=== PATIENT | female | born 1945 | race Caucasian/White ===

== ENCOUNTER 2018-03-23 19:27 | Inpatient (IN) | payer OTHER ==
[2018-03-23] MEDS ORDERED: ALPRAZOLAM 0.25 MG TABLET PO PRN (20:36)
[2018-03-23] MEDS ORDERED: ACETAMINOPHEN 500 MG TAB PO PRN (20:36)
--- NOTE | 2018-03-23 20:45 | ER ---
Nurse's Notes [facility] Name: Rossi Murray Age: 72 yrs Sex: Female : 1945 Arrival Date: 03/23/2018 Time: 19:29 Bed 4 Private MD: Luisito Foster C Diagnosis: Atrial fibrillation and flutter Presentation: 03/23 19:42 Presenting complaint: Patient states: Sent by Dr Foster for admission for A-fib RVR. aj Transition of care: patient was not received from another setting of care. Onset of symptoms was March 23, 2018. Risk Assessment: Do you want to hurt yourself or someone else? Patient reports no desire to harm self or others. Initial Sepsis Screen: Does the patient meet any 2 criteria? No. Patient's initial sepsis screen is negative. Does the patient have a suspected source of infection? No. Patient's initial sepsis screen is negative. Care prior to arrival: None. 19:42 Method Of Arrival: Ambulatory aj 19:42 Acuity: PRISCILA 3 aj Triage Assessment: 19:43 General: Appears in no apparent distress. comfortable, Behavior is calm, cooperative, aj appropriate for age. Pain: Denies pain. Neuro: Level of Consciousness is awake, alert, obeys commands, Oriented to person, place, time, situation, Appropriate for age. Respiratory: Airway is patent Respiratory effort is even, unlabored, Respiratory pattern is regular, symmetrical. Derm: Skin is intact, is healthy with good turgor, Skin is pink, warm \T\ dry. normal. Historical: - Allergies: 19:43 PENICILLINS; aj - PMHx: 19:43 Hypothyroidism; Hypertension; aj - Immunization history:: Adult Immunizations up to date. - Social history:: Smoking status: Patient/guardian denies using tobacco. - Ebola Screening: : Patient negative for fever greater than or equal to 101.5 degrees Fahrenheit, and additional compatible Ebola Virus Disease symptoms Patient denies exposure to infectious person Patient denies travel to an Ebola-affected area in the 21 days before illness onset No symptoms or risks identified at this time. Vital Signs: 19:43 BP 148 / 77; Pulse 82; Resp 19; Temp 98.4; Pulse Ox 95% on R/A; Weight 106.14 kg; aj Height 5 ft. 2 in. (157.48 cm); 19:43 Body Mass Index 42.80 (106.14 kg, 157.48 cm) ED Course: 19:29 Patient arrived in ED. es 19:30 Luisito Foster MD is Private Physician. es 19:43 Triage completed. aj 19:43 Arm band placed on left wrist. Patient placed in an exam room. aj 19:53 Paul Hall MD is Attending Physician. pkl 20:44 Luisito Foster MD is Hospitalizing Provider. kl Administered Medications: No medications were administered Outcome: 20:45 Decision to Hospitalize by Provider. kl Signatures: Jannie Kearns, RN RN Wnedy Trejo RN RN Paul Nguyen MD MD pkl Debra Gonsales
--- NOTE | 2018-03-23 21:50 | RAD REPORT ---
EXAM DESCRIPTION: Oneida Tovar And Aron (2 Views)03/23/2018 9:34 pm CLINICAL HISTORY: Atrial fibrillation COMPARISON: May 2017 FINDINGS: The lungs appear clear of acute infiltrate. The heart is borderline enlarged IMPRESSION: No acute abnormalities displayed
[2018-03-23 22:08] LABS: Magnesium 2.3 mg/dL (1.8-2.4)
[2018-03-23 22:13] LABS: Absolute Lymphocytes (CBC) 2.1 K/uL (0.7-4.9); Absolute Monocytes 0.7 K/uL (0.1-1.3); Absolute Neutrophil 4.7 K/uL (1.8-8.0); Basophils % 0.7 % (0-1.3); Eosinophils % 3.5 % (0-4.4); Hematocrit 37.2 % (36.0-45.0); MCH 26.1 pg (27.0-35.0); MCV 79.9 fL (80-100); MPV 8.4 fL (7.6-11.3); Monocytes % 8.8 % (3.3-12.3); RBC Red Blood Cell Count 4.66 M/uL (3.86-4.86)
[2018-03-23] MEDS: RIVAROXABAN 10 MG TABLET PO SCH (22:34)
[2018-03-23] MEDS: SOTALOL HCL 80 MG TAB PO SCH (22:34)
[2018-03-24 04:13] LABS: Urine Appearance CLEAR; Urine Bilirubin NEGATIVE (NEG); Urine Blood NEGATIVE (NEG); Urine Color YELLOW; Urine Glucose NEGATIVE (NEG); Urine Protein NEGATIVE (NEG); Urine Urobilinogen 0.2 mg/dL (0.2-1.0)
[2018-03-24 04:14] LABS: Urine Microscopic Reflex NO UMIC
--- NOTE | 2018-03-24 05:40 | EKG ---
Test Date: 2018-03-23 Test Time: 23:33:47 Port Patrol Officer: RT Harvey MEASUREMENT RESULTS: Intervals: Rate: 119 CA: QRSD: 82 QT: 340 QTc: 478 [place]: P: CA: QRS: -5 T: 14 INTERPRETIVE STATEMENTS: Atrial fibrillation with rapid ventricular response with premature ventricular or aberrantly conducted complexes Abnormal ECG Compared to ECG 07/10/2013 11:53:34 Ventricular premature complex(es) now present Sinus bradycardia no longer present Sinus arrhythmia no longer present Electronically Signed On 03-24-18 05:40:03 CDT by Simón Baca
--- NOTE | 2018-03-24 06:42 | HP ---
Date of Admission: 03/23/2018 Chief Complaint: Atrial fibrillation. History Of Present Illness: A 72-year-old very pleasant female patient who came in to see me on 02/2018 for her routine followup visit and when she had her vital signs checked at the office, she was noted that her heart rate was very high. Her pulse rate was 150 per minute and it was irregular. S o as soon as I found out, I evaluated her and decided to do EKG as I was concerned about atrial fibri llation. Her heart rhythm was irregularly irregular when I examined her. By the time, we did EKG on her at the office, she had converted back to sinus rhythm on her own and her EKG had shown normal si nus rhythm with heart rate around 60 to 70 per minute. So, I was suspecting atrial fibrillation, but I was not able to prove it because she had converted on her own to sinus rhythm. Property Coordinator was Dr. Keven toure and the patient was sent over to his office for event monitor and routine blood work was done which came back unremarkable including normal TSH and normal potassium. Today, I was n otified from environmental test technician office that patient's monitor has picked up atrial fibrillation, so the pat sonali was contacted to come and see me at the office, and I did talk to environmental test technician to confirm this a trial fibrillation problem that was detected on Holter monitor. When I evaluated her today, her hear t rate was 156 per minute, and it was irregularly irregular. Hemodynamically, she is stable. She do es not have any chest pain, shortness of breath, but has some tiredness feeling which she is not sure if it is any different than usual. After she was evaluated, decision was made to admit her to [facility]. Allergies: CODEINE AND PENICILLIN. Medications: Aspirin 325 mg p.o. daily, amlodipine 2.5 mg daily, calcium plus D 1 tablet 2 times a d ay, Centrum Silver 1 daily, levothyroxine 125 mcg p.o. daily, omeprazole 40 mg p.o. daily. Review of Systems: Cardiovascular: As mentioned above. Constitutional: As mentioned above. All other systems reviewed and negative. Social History: Negative for smoking, alcohol use. The patient has prior history of smoking, not at present time. Family History: Significant for COPD, cirrhosis of liver, lung cancer, coronary artery disease. Past Surgical History: Significant for bilateral salpingo-oophorectomy due to ovarian cyst in 2012 a nd tubal ligation many years ago. Past Medical History: Significant for hypertension, hyperlipidemia, osteopenia, hypothyroidism, jane roesophageal reflux disease. Physical Examination: Vital Signs: Today at office, temperature 97.8, respiratory rate 16, pulse 156 irregularly irregular , blood pressure 127/87, height 62 inches, weight 234 pounds. General: Awake, alert, oriented, not in distress. HEENT: Head atraumatic, normocephalic. Conjunctivae nonerythematous. Sclerae white. Mouth, no thr ush or edema noted. Ears/Nose, no mass, lesion, discharge noted. Neck: Supple. No JVD, lymph nodes, bruit, thyromegaly noted. Lungs: Bilateral good equal air entry. Clear to auscultation. No rhonchi. No rales. Heart: The patient is tachycardic with heart rhythm irregularly irregular. No murmur. No gallop. Abdomen: Soft, bowel sounds normal. No guarding, rigidity, tenderness, mass, hepatosplenomegaly, dis tention, or bruit noted. Extremities: No leg edema. No calf tenderness. Skin: No rash, ulcer, cellulitis. Lymphatics: No lymph node enlargement in neck, supraclavicular, infraclavicular region. Neuro: No focal neurological deficit. Chest: Unremarkable. External Genitalia: Deferred. Rectal: Deferred. Laboratory Data: White count 7.8, hemoglobin 12.2, platelets 318. Sodium 142, potassium 5, chloride 108, bicarb 30, BUN 24, creatinine 1.0, glucose 111, magnesium 2.3. Urinalysis negative. Chest x-r ay, no acute abnormality detected. Her TSH on 03/21/2018 was 0.58. EKG: Atrial fibrillation with r apid ventricular rate. Impression: 1.Atrial fibrillation with rapid ventricular rate. 2.Hypertension. 3.Hyperlipidemia. 4.Hypothyroidism. 5.Gastroesophageal reflux disease. 6.Osteopenia. Plan: Admit the patient to hospital for further evaluation and management of this problem. The [facility] is appropriate for inpatient and is expected to spend 2 midnights in hospital. We will go ahead and start her on sotalol and Xarelto. Home medications will be continued per order. Monitor blood p ressure and make a decision on appropriate antihypertensive medication accordingly. Consult Cardiolo gy and we will get echo with Doppler tomorrow. Details and plan of treatment discussed with the yemi ent. The patient had echocardiogram and nuclear stress test with environmental test technician in June 2017 and b oth of those tests were unremarkable at that time. ZULY/ÓSCAR Voice ID: [id number]
--- NOTE | 2018-03-24 08:20 | EKG ---
Test Date: 2018-03-23 Test Time: 19:37:46 Title Insurance Examiner: ARM MEASUREMENT RESULTS: Intervals: Rate: 83 AK: 140 QRSD: 78 QT: 364 QTc: 427 [place]: P: 39 AK: 140 QRS: -19 T: 16 INTERPRETIVE STATEMENTS: Normal sinus rhythm Normal ECG Compared to ECG 07/10/2013 11:53:34 Sinus bradycardia no longer present Sinus arrhythmia no longer present Electronically Signed On 03-24-18 08:19:45 CDT by Simón Baca
[2018-03-24] MEDS: SOTALOL HCL 80 MG TAB PO SCH ×2 (09:55→20:58)
[2018-03-24] MEDS: PANTOPRAZOLE 40MG TABLET PO SCH (09:56)
[2018-03-24] MEDS: LEVOTHYROXINE SOD 0.125 MG TAB PO SCH (09:56)
--- NOTE | 2018-03-24 11:42 | CON ---
Identification: A 72-year-old woman. Reason For Admission: Atrial fib. History Of Present Illness: Ms. Murray has probably been having AFib for almost a year. We did not c atch it when we looked for it. Noninvasive workup for cardiac disease was normal in June 2017. No AFib was seen then, but she continued to have symptoms. An event monitor put on recently showed t he AFib. Since that time, she was placed in the hospital, placed on Betapace and Xarelto. Past Medical History: The patient has a history of obesity, hypothyroidism, hypertension, degenerati ve joint disease, gastroesophageal reflux disease. She has never had myocardial infarction, stroke. No intracoronary stents or heart surgeries or blood clots. Social History: She uses no tobacco. No illegal drugs. Physical Examination: Vital Signs: 5 feet 2 inches, 234 pounds, body mass index 42.8. Blood pressure 116/79, heart rate 1 02, temperature 97.7. General: No pain. HEENT: Normal. Lungs: Clear. Heart: Irregularly irregular. Diagnostic Data: Her EKG shows AFib, rapid ventricular response. Impression: It is appropriate to give her anticoagulation. She will need to stop using meloxicam be fore. If we are going to use rivaroxaban, the chance of gastrointestinal bleeding is simply too high to attempt to use those together. An echocardiogram is pending, but an echocardiogram very recently was normal. I do not think there is really that much utility in doing an echo in a patient who is i n atrial fibrillation now. If she is still in atrial fibrillation by tomorrow, she will have her fourth dose of sotalol and we can do a cardioversion. We will make her n .p.o. after midnight. RANI Voice ID: [id number] Report ID: [id number]
--- NOTE | 2018-03-24 13:05 | ECHO ---
HEIGHT: 5 ft 2 in WEIGHT: 234 lb 0 oz DATE OF STUDY: 03/24/[address]: 2-DIMENSIONAL: YES M.MODE: YES DOPPLER: YES COLOR FLOW: YES TDS: NO PORTABLE: NO DEFINITY: NO BUBBLE STUDY: NO DIAGNOSIS: ATRIAL FIBRILLIATION CARDIAC HISTORY: CATHERIZATION: NO SURGERY: NO PROSTHETIC VALVE: NO PACEMAKER: NO MEASUREMENTS (cm) DIASTOLIC (NORMALS) SYSTOLIC (NORMALS) IVSd 1.1 (0.6-1.2) LA Diam 3.3 (1.9-4.0) LVEF 51% LVIDd 3.8 (3.5-5.7) LVIDs 2.9 (2.0-3.5) %FS 25% LVPWd 1.2 (0.6-1.2) Ao Diam 2.8 (2.0-3.7) 2 DIMENSIONAL ASSESSMENT: RIGHT ATRIUM: NORMAL LEFT ATRIUM: NORMAL RIGHT VENTRICLE: NORMAL LEFT VENTRICLE: NORMAL TRICUSPID VALVE: NORMAL MITRAL VALVE: NORMAL PULMONIC VALVE: NORMAL AORTIC VALVE: NORMAL PERICARDIAL EFFUSION: NONE AORTIC ROOT: NORMAL LEFT VENTRICULAR WALL MOTION: NORMAL. DOPPLER/COLOR FLOW: MILD TRICUSPID REGURGITATION. NORMAL RIGHT VENTRICULAR SYSTOLIC PRESSURE. COMMENTS: NORMAL SINUS RHYTHM. NORMAL 2D ECHOCARDIOGRAM WITH DOPPLER. MILD TRICUSPID REGURGITATION. TECHNOLOGIST: ANKUSH SALINAS RDCS
--- NOTE | 2018-03-24 13:44 | EKG ---
Test Date: 2018-03-24 Test Time: 08:59:24 Load Out Worker: SURAJ MEASUREMENT RESULTS: Intervals: Rate: 61 VA: 136 QRSD: 76 QT: 440 QTc: 442 Ross: P: 52 VA: 136 QRS: -14 T: -7 INTERPRETIVE STATEMENTS: Normal sinus rhythm Nonspecific T wave abnormality Abnormal ECG Compared to ECG 03/23/2018 23:33:47 T-wave abnormality now present Atrial fibrillation no longer present Ventricular premature complex(es) no longer present Aberrant conduction of supraventricular beat(s) no longer present Electronically Signed On 03-24-18 13:44:03 CDT by Simón Baca
--- NOTE | 2018-03-24 20:04 | PN ---
Date of Progress Note: 03/24/2018 Subjective: The patient was seen this morning for followup. No new complaints or problems reported by her. When I saw her, she was still in atrial fibrillation with rapid ventricular rate. Denies an y chest pain, shortness of breath. Objective: Vital Signs: Reviewed. HEENT: Unremarkable. Lungs: Clear to auscultation. Heart: Sounds normal. Abdomen: Soft. Bowel sounds normal. No guarding, rigidity, tenderness, or distention. Extremities: No leg edema. Diagnostic Data: Echocardiogram done today shows ejection fraction 51%, mild tricuspid regurgitation . Impression: 1.Paroxysmal atrial fibrillation with rapid ventricular rate. 2.Hypertension. 3.Hypothyroidism. Plan: We will go ahead and continue current medication which is sotalol as well as Xarelto. The luis lyon does not need any antihypertensive medication at this point. We will continue to monitor that. I will see her tomorrow for followup. I did talk to Dr. Baca from cardiology and he has informed me that if the patient does not convert to sinus rhythm by tomorrow, he will consider electrical card ioversion and all those details were discussed with her as well. ZULY/MODL Voice ID: [id number] Report ID: [id number]
[2018-03-24] MEDS: RIVAROXABAN 10 MG TABLET PO SCH (20:58)
[2018-03-25] MEDS: LEVOTHYROXINE SOD 0.125 MG TAB PO SCH (10:25)
[2018-03-25] MEDS: PANTOPRAZOLE 40MG TABLET PO SCH (10:25)
[2018-03-25] MEDS: SOTALOL HCL 80 MG TAB PO SCH (10:25)
--- NOTE | 2018-03-25 14:46 | DS ---
Date of Discharge: 03/25/2018 Disposition: Discharged to go home. Physical Examination: HEENT: Unremarkable. Lungs: Clear to auscultation. Heart: Sounds normal. Abdomen: Soft. Bowel sounds normal. No guarding, rigidity, tenderness, distention. Extremities: No leg edema. Discharge Medication/instruction: Continue all prior home medication except discontinue amlodipine a nd discontinue meloxicam. New medication includes: 1.Xarelto 20 mg p.o. daily after supper. 2.Sotalol 80 mg p.o. twice a day, and the patient was advised to take it 12 hours apart. Follow up at my office in 2 weeks. Follow up with Dr. Baca in 3 weeks. Laboratory Data: Labs done during this hospitalization white count 7.8, hemoglobin 12.2, platelets 3 18. Sodium 142, potassium 5, chloride 108, bicarb 30, BUN 24, creatinine 1, glucose 111, magnesium 2 .3. Hospital Course: A 72-year-old female patient admitted to the hospital with atrial fibrillation prob irene. Please see dictated H and P for more information. After the patient came into office, she was evaluated her. Her heart rate was 156 per minute, irregularly irregular, and she was wearing an even t monitor, which recorded atrial fibrillation, so I was contacted from relationship assoc's office and jenna calvin was made to admit her to hospital considering her rapid ventricular rate with this atrial fibril lation. Hemodynamically, she was stable. After she was admitted to the hospital, she was started on sotalol 80 mg twice a day and Xarelto 20 mg p.o. daily. She converted to normal sinus rhythm after second dose of sotalol. Overall, her condition has remained stable. Once she converted to sinus rhy thm, she continued to remain in sinus rhythm. No new complaints or problems reported. Cardiology co nsultation was obtained. Echocardiogram showed normal ejection fraction. It was unremarkable echoca rdiogram. I did talk to her about risk, benefit of anticoagulation therapy and in her case benefit i s more than the risk of use of anticoagulation therapy, and I have also instructed her today that she should not take any medications like aspirin, Aleve, Motrin, ibuprofen, etc., and she should not wm e her meloxicam that she was taking for her arthritis. She was advised that she may use Tylenol 500 mg 4 times a day as needed for pain and if that does not work, then we may have to go to some stronge r pain medications like narcotic pain medications. The risk of bleeding associated with anticoagulat ion therapy reviewed with her and if that happens, she will need to come to emergency room. Final Diagnoses: 1.Paroxysmal atrial fibrillation, converted to sinus rhythm with sotalol. 2.Hypertension. 3.Hyperlipidemia. 4.Hypothyroidism. 5.Gastroesophageal reflux disease. 6.Osteopenia. ZULY/MODL Voice ID: [id number] Report ID: [id number]
== END 2018-03-25 12:20 | disposition home or self-care (01) | DRG 309 ==
LOC: ER 19:27 → ERHOLD 19:50 → 4TH 20:57
PROVIDERS: ADMIT Internal Medicine; ATTEND Internal Medicine
DX: I48.0 Paroxysmal atrial fibrillation (principal); Z68.41 Body mass index [BMI] 40.0-44.9, adult; I10 Essential (primary) hypertension; E78.5 Hyperlipidemia, unspecified; E03.9 Hypothyroidism, unspecified; K21.9 Gastro-esophageal reflux disease without esophagitis; M85.80 Other specified disorders of bone density and structure, unspecified site; E66.9 Obesity, unspecified; M19.90 Unspecified osteoarthritis, unspecified site; Z79.82 Long term (current) use of aspirin; Z88.5 Allergy status to narcotic agent; Z88.0 Allergy status to penicillin; Z87.891 Personal history of nicotine dependence
CPT/HCPCS: 36415; 71046; 80048; 81003; 83735; 85025; 93005; 93306

== ENCOUNTER 2019-11-27 12:58 | Emergency (ER) | payer OTHER ==
[2019-11-27] MEDS ORDERED: TETANUS & DIPHTHERIA TOX,ADULT 0.5 ML VIAL ONE (13:23)
--- NOTE | 2019-11-27 13:33 | RAD REPORT ---
EXAM DESCRIPTION: RAD - Forearm Right - 11/27/2019 1:23 pm CLINICAL HISTORY: PAIN, trip and fall, arm pain COMPARISON: No comparisons FINDINGS: Transverse fracture is present in the distal radial metaphysis. There is impaction along t he dorsal margin with a 15 degree dorsal angulation. Ulna styloid is fractured with 1 mm of distracti on. There is no dislocation or periosteal reaction noted. No foreign body or other soft tissue abnormality. IMPRESSION: Distal right radius fracture with minimal impaction and dorsal angulation. Ulna styloid fracture.
--- NOTE | 2019-11-27 13:37 | EDPHYS ---
Physician Documentation [facility] Name: Rossi Murray Age: 74 yrs Sex: Female : 1945 Arrival Date: 11/27/2019 Time: 12:59 Bed 13 Private MD: Luisito Foster C ED Physician Westley Fisher HPI: 11/26 13:31 This 74 yrs old Female presents to ER via Ambulatory with complaints of Fall kb Injury, Wrist Injury. 13:31 Details of fall: The patient fell from an upright position, while walking. Onset: The kb symptoms/episode began/occurred just prior to arrival. Associated injuries: The patient sustained right wrist, decreased range of motion, painful injury, palmar aspect of right forearm, abrasion. Severity of symptoms: At their worst the symptoms were mild, moderate, in the emergency department the symptoms are unchanged. The patient has not experienced similar symptoms in the past. The patient has not recently seen a physician. Historical: - Allergies: 13:09 PENICILLINS; ca1 - PMHx: 13:09 Hypertension; Hypothyroidism; ca1 13:10 Atrial Fib; ca1 - Immunization history:: Adult Immunizations up to date, Last tetanus immunization: unknown, Pneumococcal vaccine is up to date, Flu vaccine is up to date. - Social history:: Smoking status: Patient denies any tobacco usage or history of. ROS: 13:29 Constitutional: Negative for fever, chills, and weight loss, ENT: Negative for injury, kb pain, and discharge, Neck: Negative for injury, pain, and swelling, Cardiovascular: Negative for chest pain, palpitations, and edema, Respiratory: Negative for shortness of breath, cough, wheezing, and pleuritic chest pain, Abdomen/GI: Negative for abdominal pain, nausea, vomiting, diarrhea, and constipation, Back: Negative for injury and pain, Neuro: Negative for headache, weakness, numbness, tingling, and seizure. 13:29 MS/extremity: Positive for injury or acute deformity, abrasion, decreased range of motion, pain, swelling, tenderness. Exam: 13:29 Constitutional: This is a well developed, well nourished patient who is awake, alert, kb and in no acute distress. Head/Face: Normocephalic, atraumatic. Neck: Trachea midline, no thyromegaly or masses palpated, and no cervical lymphadenopathy. Supple, full range of motion without nuchal rigidity, or vertebral point tenderness. No Meningismus. Chest/axilla: Normal chest wall appearance and motion. Nontender with no deformity. No lesions are appreciated. Cardiovascular: Regular rate and rhythm with a normal S1 and S2. No gallops, murmurs, or rubs. Normal PMI, no JVD. No pulse deficits. Respiratory: Lungs have equal breath sounds bilaterally, clear to auscultation and percussion. No rales, rhonchi or wheezes noted. No increased work of breathing, no retractions or nasal flaring. Abdomen/GI: Soft, non-tender, with normal bowel sounds. No distension or tympany. No guarding or rebound. No evidence of tenderness throughout. Neuro: Awake and alert, GCS 15, oriented to person, place, time, and situation. Cranial nerves II-XII grossly intact. Motor strength 5/5 in all extremities. Sensory grossly intact. Cerebellar exam normal. Normal gait. 13:29 Musculoskeletal/extremity: Extremities: grossly normal except: noted in the right wrist: decreased ROM, pain, swelling, tenderness, noted in the palmar aspect of right forearm: abrasion, ROM: limited active range of motion due to pain, in the palmar aspect of right forearm, Circulation is intact in all extremities. Sensation intact. Vital Signs: 13:07 BP 161 / 74; Pulse 76; Resp 16 S; Temp 97.6(TE); Pulse Ox 98% on R/A; Weight 105.69 kg ca1 (R); Height 5 ft. 2 in. (157.48 cm) (R); Pain 5/10; 14:08 BP 123 / 81; Pulse 62; Resp 17 S; Pulse Ox 97% on R/A; ca1 13:07 Body Mass Index 42.62 (105.69 kg, 157.48 cm) ca1 MDM: 13:00 Patient medically screened. kb 13:31 Data reviewed: vital signs, nurses notes. Data reviewed: radiologic studies. Data kb interpreted: Pulse oximetry: on room air is 98 %. Interpretation: normal. Counseling: I had a detailed discussion with the patient and/or guardian regarding: the historical points, exam findings, and any diagnostic results supporting the discharge/admit diagnosis, radiology results, the need for outpatient follow up, a family practitioner, a orthopedic surgeon, smoking cessation. 11/26 13:04 Order name: Forearm Right XRAY; Complete Time: 13:37 kb 11/26 13:29 Order name: Sugar Tong Forearm Splint; Complete Time: 13:42 kb 11/26 13:29 Order name: Sling; Complete Time: 13:36 kb Administered Medications: 13:39 Drug: Tetanus-Diphtheria Toxoid Adult 0.5 ml {Assignment Editor: [email or web address]. Exp: ca1 09/28/2021. Lot #: [id number]. } Route: IM; Site: right deltoid; 13:58 Follow up: Response: No adverse reaction ca1 Disposition: 11/27/19 13:36 Discharged to Home. Impression: Displaced fracture of distal right radius. - Condition is Stable. - Discharge Instructions: Forearm Fracture, [id number], Cast or Splint Care, [id number]. - Prescriptions for Tramadol 50 mg Oral Tablet - take 1 tablet by ORAL route every 8 hours as needed; 12 tablet. - Medication Reconciliation Form, Thank You Letter, Antibiotic Education, Prescription Opioid Use form. - Follow up: Emergency Department; When: As needed; Reason: Worsening of condition. Follow up: Private Physician; When: 2 - 3 days; Reason: Recheck today's complaints, Continuance of care, Re-evaluation by your physician. Addendum: 11/28/2019 19:07 Co-signature as Attending Physician, Westley Fisher MD I agree with the assessment and c loaiza plan of care. Signatures: Dispatcher [employer] EDLori Jamil, DIRECTOR OF GRANTS-C DIRECTOR OF GRANTS-Ckb Westley Fisher MD MD cha Acob, Cheryl, RN RN ca1 Corrections: (The following items were deleted from the chart) 11/26 14:09 13:36 11/27/2019 13:36 Discharged to Home. Impression: Displaced fracture of distal ca1 right radius. Condition is Stable. Forms are Medication Reconciliation Form, Thank You Letter, Antibiotic Education, Prescription Opioid Use. Follow up: Emergency Department; When: As needed; Reason: Worsening of condition. Follow up: Private Physician; When: 2 - 3 days; Reason: Recheck today's complaints, Continuance of care, Re-evaluation by your physician. kb
--- NOTE | 2019-11-27 13:37 | ER ---
Nurse's Notes [facility] Name: Rossi Murray Age: 74 yrs Sex: Female : 1945 Arrival Date: 11/27/2019 Time: 12:59 Bed 13 Private MD: Luisito Foster C Diagnosis: Displaced fracture of distal right radius Presentation: 11/26 13:07 Chief complaint: Patient states: Tripped and fell an hour ago, landed on R hand. ca1 Abrasion noted on R forearm, c/o of R wrist pain. Coronavirus screen: Proceed with normal triage. Patient denies a cough. Patient denies shortness of breath or difficulty breathing. Patient denies measured and/or subjective temperature greater than 100.4F prior to today's visit. Patient denies travel on a cruise ship or to a country the [facility] currently lists as an affected area. Patient denies contact with known and/or suspected case of COVID-19. Ebola Screen: Patient negative for fever greater than or equal to 101.5 degrees Fahrenheit, and additional compatible Ebola Virus Disease symptoms Patient denies exposure to infectious person. Patient denies travel to an Ebola-affected area in the 21 days before illness onset. No symptoms or risks identified at this time. Initial Sepsis Screen: Does the patient meet any 2 criteria? No. Patient's initial sepsis screen is negative. Does the patient have a suspected source of infection? No. Patient's initial sepsis screen is negative. Risk Assessment: Do you want to hurt yourself or someone else? Patient reports no desire to harm self or others. Onset of symptoms was November 27, 2019 at 12:00. 13:07 Method Of Arrival: Ambulatory ca1 13:07 Acuity: PRISCILA 4 ca1 Triage Assessment: 13:10 General: Appears in no apparent distress. comfortable, Behavior is calm, cooperative, ca1 appropriate for age. Pain: Complains of pain in right wrist Pain currently is 5 out of 10 on a pain scale. Pain: Aggravated by repositioning. EENT: No signs and/or symptoms were reported regarding the EENT system. Neuro: Level of Consciousness is awake, alert, obeys commands, Oriented to person, place, time, situation, Appropriate for age. Derm: Skin is fragile, is thin, Skin is pink, warm \T\ dry. Musculoskeletal: Circulation, motion, and sensation intact. Capillary refill < 3 seconds, Range of motion: limited in right wrist. Injury Description: Abrasion sustained to palmar aspect of right forearm was sustained 30-60 minutes ago. Historical: - Allergies: 13:09 PENICILLINS; ca1 - PMHx: 13:09 Hypertension; Hypothyroidism; ca1 13:10 Atrial Fib; ca1 - Immunization history:: Adult Immunizations up to date, Last tetanus immunization: unknown, Pneumococcal vaccine is up to date, Flu vaccine is up to date. - Social history:: Smoking status: Patient denies any tobacco usage or history of. Screenin:11 Abuse screen: Denies threats or abuse. Denies injuries from another. Nutritional ca1 screening: No deficits noted. Tuberculosis screening: No symptoms or risk factors identified. Fall Risk Fall in past 12 months (25 points). Assessment: 13:11 Reassessment: SEE TRIAGE ASSESSMENT. ca1 13:46 Reassessment: Patient appears in no apparent distress at this time. Patient is alert, ca1 oriented x 3, equal unlabored respirations, skin warm/dry/pink. Vital Signs: 13:07 BP 161 / 74; Pulse 76; Resp 16 S; Temp 97.6(TE); Pulse Ox 98% on R/A; Weight 105.69 kg ca1 (R); Height 5 ft. 2 in. (157.48 cm) (R); Pain 5/10; 14:08 BP 123 / 81; Pulse 62; Resp 17 S; Pulse Ox 97% on R/A; ca1 13:07 Body Mass Index 42.62 (105.69 kg, 157.48 cm) ca1 ED Course: 12:59 Patient arrived in ED. ag5 12:59 Luisito Foster MD is Private Physician. ag5 13:00 Riri Ceja, AMAN is Primary Nurse. ca1 13:00 L[facility] Mart [facility]C [facility]. kb 13:00 Westley Fisher MD is Attending Physician. kb 13:09 Triage completed. ca1 13:10 Arm band placed on right wrist. ca1 13:11 Patient has correct armband on for positive identification. Bed in low position. Call ca1 light in reach. Pulse ox on. NIBP on. 13:11 No provider procedures requiring assistance completed. Patient did not have IV access ca1 during this emergency room visit. 13:23 Forearm Right XRAY In Process Unspecified. EDMS 13:40 Dressings: non-adherent dressing x 1 palmar aspect of right forearm 4X4s X 1; palmar ca1 aspect of right forearm. Wound care: to abrasion, located on palmar aspect of right forearm was cleaned with Betadine, Patient tolerated well. 13:42 Orthoglass splint: Sugar tong splint applied on right arm. Sling applied to. 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 Exp: ca1 09/28/2021. Lot #: [id number]. } Route: IM; Site: right deltoid; 13:58 Follow up: Response: No adverse reaction ca1 Outcome: 13:36 Discharge ordered by . taylor 14:09 Discharged to home ambulatory. ca1 14:09 Condition: stable 14:09 Discharge instructions given to patient, Instructed on discharge instructions, follow up and referral plans. no drinking with medication, no driving heavy equipment, medication usage, wound care, Demonstrated understanding of instructions, follow-up care, wound care, splint care, Prescriptions given X 1. 14:09 Patient left the ED. ca1 Signatures: Dispatcher [employer] EDMS Lori Mart, Suzette Akers [facility] Riri Ceja RN RN ca1 Dann Luna 5 Corrections: (The following items were deleted from the chart) 13:11 13:10 Injury Description: Abrasion sustained to palmar aspect of right forearm was ca1 sustained less than 30 minutes ago. ca1 14:08 13:54 Wound care: to abrasion, located on palmar aspect of right forearm was cleaned ca1 with Betadine, Patient tolerated well. ca1 14:08 13:54 Dressings: non-adherent dressing x 1 palmar aspect of right forearm 4X4s X 1; ca1 palmar aspect of right forearm ca1
[2019-11-27 15:35] VITALS: BP 123/81; O2SAT 97
== END 2019-11-27 14:09 | disposition home or self-care (01) ==
LOC: ER 12:58
PROC: 2W3CX1Z Immobilization of Right Lower Arm using Splint (ICD-10-PCS; principal; 2019-11-27)
DX: S52.501A Unspecified fracture of the lower end of right radius, initial encounter for closed fracture (principal); W19.XXXA Unspecified fall, initial encounter; Y93.01 Activity, walking, marching and hiking; Y92.9 Unspecified place or not applicable; I10 Essential (primary) hypertension; Z88.0 Allergy status to penicillin; Z23 Encounter for immunization
CPT/HCPCS: 90471; 90714; 99284

== ENCOUNTER 2023-07-19 07:29 | Day surgery (SDC) | payer OTHER ==
[2023-07-15 12:30] LABS: Protime INR 1.29
[2023-07-18 11:12] LABS: Absolute Lymphocytes (CBC) 1.6 K/uL (0.7-4.9); Hematocrit 34.8 % (36.0-45.0); Lymphocytes % 20.1 % (15.3-44.8); MCV 84.3 fL (80-100); MPV 8.2 fL (7.6-11.3); Platelets 296 thou/uL (152-406); RBC Red Blood Cell Count 4.12 M/uL (3.86-4.86)
[2023-07-18 12:50] LABS: Anisocytosis 2+; Blood Morphology Comment NOTED (NOT SEEN); Platelet Estimate ADEQ; White Blood Cell Scan OK (OK)
[2023-07-18 13:12] LABS: Potassium 3.6 mEq/L (3.5-5.1)
[2023-07-19] MEDS ORDERED: NA CHLORIDE 0.9% 500 ML ONE (08:22)
[2023-07-19] MEDS ORDERED: HEPA 1000U/500MLS 2,000 UNIT/1,000 ML BAG IV ONE (09:05)
[2023-07-19] MEDS ORDERED: MIDAZOLAM HCL 2 MG/2 ML INJ ONE (09:06)
[2023-07-19] MEDS ORDERED: FENTANYL CITR 100 MCG/2 ML ONE (09:06)
[2023-07-19] MEDS ORDERED: LIDOCAINE 1% 20 ML MDV ONE (09:06)
[2023-07-19] MEDS ORDERED: VERAPAMIL HCL 10 MG/4 ML VIAL IV ONE (09:06)
[2023-07-19] MEDS ORDERED: HEPARIN 5000 UNIT/ML 1 ML VIAL ONE (09:07)
[2023-07-19] MEDS ORDERED: CLOPIDOGREL 75 MG TABLET ONE (09:07)
[2023-07-19] MEDS ORDERED: HEPARIN 10,000 UNIT/10 ML VIAL IV ONE (09:07)
[2023-07-19] MEDS ORDERED: TICAGRELOR 90 MG TABLET PO ONE (09:07)
[2023-07-19] MEDS ORDERED: ASPIRIN 325 MG TAB ONE (09:07)
[2023-07-19] MEDS ORDERED: ATROPINE SULF 1 MG/10 ML SYR IV ONE (09:08)
[2023-07-19 10:24] VITALS: TEMP 98.1
[2023-07-19 11:58] VITALS: BP 143/64; O2SAT 94
--- NOTE | 2023-07-19 13:45 | EKG ---
Test Date: 2023-07-15 Test Time: 10:50:53 Appliance Painter And Refinisher: SURAJ MEASUREMENT RESULTS: Intervals: Rate: 52 DE: 148 QRSD: 86 QT: 518 QTc: 481 [place] Pool: P: 48 DE: 148 QRS: -18 T: -30 INTERPRETIVE STATEMENTS: Sinus bradycardia Nonspecific T wave abnormality Prolonged QT Abnormal ECG Compared to ECG 04/09/2023 22:17:57 T-wave abnormality now present Prolonged QT interval now present Atrial flutter no longer present ST (T wave) deviation no longer present Possible ischemia no longer present Electronically Signed On 07-19-23 13:31:50 PATCH SANDER by Hesham Maciel
--- NOTE | 2023-07-19 18:17 | OP ---
Date of Procedure: 07/19/2023 Surgeon: ARFAEL GARCÍA Procedures Performed: 1.Selective coronary angiogram. 2.Left heart catheterization. Indication: Chest pain with abnormal stress test. Access: Right radial artery 6-Estonian closed with TR band. Complications: None. Bleeding: Less than 20 mL. Description Of Procedure: After risks, benefits, alternatives were explained, patient agreed to proc edure and signed informed consent. The patient was brought into cardiac catheterization laboratory, prepped and draped in the usual sterile fashion. Then, I accessed right radial artery using [place] c micropuncture kit and placed a 6-Estonian Slender sheath and took 5-Estonian [place] 4.0 catheter into th e aortic root, engaged left main, took standard views and then engaged the RCA and took standard view s and over the wire, catheter was pushed into the LV, measured with LVEDP and pullback did not record any gradient and then I removed the catheter and the sheath, and placed TR band with good hemostasis . Findings: 1.Left main; large and normal. 2.LAD; proximal 30% and then luminal regularities throughout. Normal diagonal branches. 3.Left circumflex; it is large vessel with normal proximal segment. OM is small and after the OM ta keoff, there is a mid left circumflex 50% stenosis. 4.RCA; moderate size vessel with the proximal 30% stenosis. 5.Elevated LVEDP at 20 mmHg. 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 2.Elevated LVEDP. Recommendation: Medical management. /ÓSCAR Voice ID: [id number] Report ID: [id number]
== END 2023-07-19 12:11 | disposition home or self-care (01) ==
LOC: CCL 07:29
PROVIDERS: ATTEND Internal Medicine
DX: I25.10 Atherosclerotic heart disease of native coronary artery without angina pectoris (principal); I65.23 Occlusion and stenosis of bilateral carotid arteries; I48.0 Paroxysmal atrial fibrillation; I10 Essential (primary) hypertension; E78.2 Mixed hyperlipidemia; Z79.899 Other long term (current) drug therapy; Z88.0 Allergy status to penicillin
CPT/HCPCS: 93005; 85025; 80048; 36415; 85610; 93458; 76937; C1893; Q9966; J1644; J2001; J2250; J3010; J7040; 99152; 99153; J0461